=== PATIENT | female | born 1965 | race Caucasian/White ===

== ENCOUNTER 2021-10-07 07:57 | Outpatient (CLI) | payer OTHER, SELFPAY ==
[2021-10-07 08:25] LABS: Basophils Percent Auto 0.6 % (0.2-1.2); Eosinophils Absolute Auto 0.1 K/mm3 (0-0.3); Eosinophils Percent Auto 2.7 % (0-4.4); Hemoglobin 10.6 g/dL (12.0-15.0); Immature Granulocyte Absolute 0.04 K/mm3 (0.00-0.031); Immature Granulocyte Percent A 0.8 % (0-0.5); Lymphocytes Absolute Auto 2.11 K/mm3 (0.9-3.2); Lymphocytes Percent Auto 43.1 % (18.3-44.2); Mean Corpuscular HGB Conc 31.2 g/dl (32-36); Mean Corpuscular Hemoglobin 28.8 pg (26-34); Mean Corpuscular Volume 92.4 fl (80-100); Monocytes Absolute Auto 0.4 K/mm3 (0.1-0.6); Monocytes Percent Auto 8.2 % (2.6-8.5); Neutrophils Absolute Auto 2.2 K/mm3 (1.3-6.7); Neutrophils Percent Auto 44.6 % (45.5-73.1); Platelet Count Result 288 k/mm3 (150-375); Red Blood Count 3.68 M/mm3 (4.2-5.4); Red Cell Distribution Width 13.2 % (11.5-14.5); White Blood Count 4.9 K/mm3 (4.5-10.0)
[2021-10-07 08:32] LABS: Alanine Aminotransferase 20 U/L (6-35); Albumin Level 4.4 g/dL (3.5-5.1); Alkaline Phosphatase 66 U/L (38-126); Anion Gap 6 mmol/L (8-16); Aspartate Amino Transferase 24 U/L (14-36); Bilirubin,Total 0.3 mg/dL (0.2-1.3); Blood Urea Nitrogen 19 mg/dL (7-17); Calcium 9.2 mg/dL (8.4-10.2); Carbon Dioxide 27 mmol/L (22-30); Chloride 105 mmol/L (98-107); Cholesterol 203 mg/dL (0-200); Estimated Glomerular Filt Rate > 60; Glucose 97 mg/dL (65-110); HDL Direct 59 mg/dL; Potassium 3.8 mmol/L (3.4-5.0); Sodium 138 mmol/L (137-145); Triglycerides 66 mg/dL (<150)
[2021-10-07 08:42] LABS: LDL Cholesterol Direct 93 mg/dL
[2021-10-07 08:59] LABS: Hemoglobin A1C 5.6 % (<5.7)
[2021-10-09 21:21] LABS: Hepatitis C RNA, Quant PCR <15 IU/mL
== END 2021-10-07 07:58 | disposition home or self-care (01) ==
PROVIDERS: PCP Family Medicine Sports Medicine; Visit Provider Family Medicine Sports Medicine
DX: Z11.59 Encounter for screening for other viral diseases (principal); Z12.31 Encounter for screening mammogram for malignant neoplasm of breast; I70.0 Atherosclerosis of aorta; E78.2 Mixed hyperlipidemia; Z78.0 Asymptomatic menopausal state; Z80.0 Family history of malignant neoplasm of digestive organs; Z13.21 Encounter for screening for nutritional disorder
CPT/HCPCS: 36415; 80053; 80061; 82306; 83036; 84443; 85025; 87522

== ENCOUNTER 2021-11-07 10:06 | Outpatient (CLI) | payer OTHER, SELFPAY ==
[2021-11-07 10:42] LABS: Basophils Absolute Auto 0.1 K/mm3 (0.0-0.1); Eosinophils Absolute Auto 0.1 K/mm3 (0-0.3); Eosinophils Percent Auto 1.7 % (0-4.4); Hemoglobin 10.8 g/dL (12.0-15.0); Immature Granulocyte Absolute 0.03 K/mm3 (0.00-0.031); Immature Granulocyte Percent A 0.6 % (0-0.5); Lymphocytes Absolute Auto 2.26 K/mm3 (0.9-3.2); Lymphocytes Percent Auto 43.3 % (18.3-44.2); Mean Corpuscular HGB Conc 30.9 g/dl (32-36); Mean Corpuscular Hemoglobin 27.8 pg (26-34); Mean Platelet Volume 10.4 fl (7.4-10.4); Monocytes Absolute Auto 0.4 K/mm3 (0.1-0.6); Monocytes Percent Auto 7.1 % (2.6-8.5); Neutrophils Absolute Auto 2.4 K/mm3 (1.3-6.7); Neutrophils Percent Auto 46.3 % (45.5-73.1); Platelet Count Result 294 k/mm3 (150-375); Red Blood Count 3.89 M/mm3 (4.2-5.4); Red Cell Distribution Width 13.7 % (11.5-14.5); White Blood Count 5.2 K/mm3 (4.5-10.0)
[2021-11-07 11:06] LABS: CRP < 0.5 mg/dL (<1.0)
[2021-11-07 11:09] LABS: Iron 64 ug/dL (37-170)
[2021-11-07 11:27] LABS: Free T4 Free Thyroxine 0.89 ng/mL (0.78-2.19)
[2021-11-07 11:45] LABS: Ferritin 7.95 ng/mL (11.1-264)
[2021-11-07 12:19] LABS: Folic Acid > 20.0 ng/mL (2.76->20)
[2021-11-10 12:28] LABS: DHEA-Sulfate 79 mcg/dL (8-188)
[2021-11-10 14:44] LABS: T3 Reverse 10 ng/dL (8-25)
[2021-11-11 02:43] LABS: Insulin Level Total 8.3 uIU/mL (<=19.6); Thyroglobulin 6.1 ng/mL (2.8-40.9); Thyroglobulin Antibodies <1 IU/mL (<=1); Thyroid Peroxidase Antibodies <1 IU/mL (<9)
[2021-11-12 23:06] LABS: Estradiol, Ultrasensitive 14 pg/mL
[2021-11-13 05:44] LABS: Homocysteine 8.6 umol/L (<10.4)
[2021-11-14 20:50] LABS: FSH 64.6 mIU/mL (***); LH 23.4 mIU/mL (***); Progesterone <0.2 ng/mL (***)
[2021-11-15 11:42] LABS: Testosterone Free 3.2 pg/mL (0.1-6.4); Testosterone Total 30 ng/dL (2-45)
== END 2021-11-07 10:07 | disposition home or self-care (01) ==
LOC: ANHLAB 10:09
PROVIDERS: PCP Family Medicine Sports Medicine
DX: M25.50 Pain in unspecified joint (principal); D64.9 Anemia, unspecified; R53.83 Other fatigue; N95.9 Unspecified menopausal and perimenopausal disorder; L74.9 Eccrine sweat disorder, unspecified; E66.9 Obesity, unspecified
CPT/HCPCS: 36415; 82627; 82670; 82728; 82746; 83001; 83002; 83090; 83525; 83540; 84144; 84402; 84403; 84432; 84439; 84443; 84481; 84482; 85025; 86140; 86376; 86628; 86800

== ENCOUNTER 2022-01-16 10:32 | Outpatient (CLI) | payer OTHER, SELFPAY ==
[2022-01-16 11:54] LABS: Basophils Absolute Auto 0.1 K/mm3 (0.0-0.1); Basophils Percent Auto 0.9 % (0.2-1.2); Eosinophils Absolute Auto 0.1 K/mm3 (0-0.3); Eosinophils Percent Auto 1.6 % (0-4.4); Hemoglobin 12.1 g/dL (12.0-15.0); Immature Granulocyte Absolute 0.03 K/mm3 (0.00-0.031); Immature Granulocyte Percent A 0.5 % (0-0.5); Lymphocytes Absolute Auto 2.13 K/mm3 (0.9-3.2); Lymphocytes Percent Auto 38.5 % (18.3-44.2); Mean Corpuscular HGB Conc 31.8 g/dl (32-36); Mean Corpuscular Hemoglobin 27.6 pg (26-34); Mean Corpuscular Volume 86.8 fl (80-100); Mean Platelet Volume 11.1 fl (7.4-10.4); Monocytes Absolute Auto 0.4 K/mm3 (0.1-0.6); Monocytes Percent Auto 6.3 % (2.6-8.5); Neutrophils Absolute Auto 2.9 K/mm3 (1.3-6.7); Neutrophils Percent Auto 52.2 % (45.5-73.1); Platelet Count Result 263 k/mm3 (150-375); Red Blood Count 4.38 M/mm3 (4.2-5.4); Red Cell Distribution Width 16.4 % (11.5-14.5); White Blood Count 5.5 K/mm3 (4.5-10.0)
[2022-01-16 12:40] LABS: Iron 63 ug/dL (37-170)
[2022-01-16 12:50] LABS: Percent Iron Saturation 15 % (20-50)
== END 2022-01-16 10:33 | disposition home or self-care (01) ==
LOC: ANHLAB 10:37
PROVIDERS: PCP Family Medicine Sports Medicine; Visit Provider Family Medicine Sports Medicine
DX: Z00.00 Encounter for general adult medical examination without abnormal findings (principal); D64.9 Anemia, unspecified; R31.21 Asymptomatic microscopic hematuria; Z11.59 Encounter for screening for other viral diseases; Z13.29 Encounter for screening for other suspected endocrine disorder; I70.0 Atherosclerosis of aorta; K76.0 Fatty (change of) liver, not elsewhere classified; E78.2 Mixed hyperlipidemia; Z78.0 Asymptomatic menopausal state
CPT/HCPCS: 36415; 82607; 83540; 83550; 85025

== ENCOUNTER 2022-09-04 15:07 | Outpatient (CLI) | payer OTHER, SELFPAY ==
--- NOTE | ~2022-09-04 | MM_ITS ---
EXAMINATION: MM screening esha BI w irene HISTORY: Screening mammogram TECHNIQUE: Craniocaudal and mediolateral oblique 3-D tomosynthesis images were obtained and synthetic 2-D images were generated. CAD analysis was submitted and interpreted. COMPARISON: No prior mammogram is available for comparison at this institution. BREAST PARENCHYMAL COMPOSITION: The breasts are almost entirely fatty. FINDINGS: No suspicious mass, calcification, or architectural distortion are identified in either erica ast to suggest malignancy. IMPRESSION: 1. No mammographic evidence of malignancy. 2. Recommend routine screening mammography in one year. BI-RADS Category 1: Negative Reviewed, dictated and finalized at location A.
== END 2022-09-04 15:08 | disposition home or self-care (01) ==
LOC: ANHIMG 15:10
PROVIDERS: PCP Family Medicine Sports Medicine; Visit Provider Family Medicine Sports Medicine
DX: Z12.31 Encounter for screening mammogram for malignant neoplasm of breast (principal)
CPT/HCPCS: 77063; 77067

== ENCOUNTER 2022-12-22 12:58 | Outpatient (CLI) | payer OTHER, SELFPAY ==
--- NOTE | 2022-12-22 | ECHO_ITS ---
Patient Info Name: Karo Gregory Age: 56 years : 1965 Gender: Female Ht: 70 in Wt: 260 lbs BSA: 2.46 m2 HR: 61 bpm BP: 128 / 90 mmHg Heart Rhythm: Sinus Rhythm Technical Quality: Fair Exam Date: 12/22/2022 1:53 PM Exam Location: [facility] Patient Status: Outpatient Admit Date: 12/22/2022 Staff Ordering Physician: FreidaBrittney DO Dipper Operator: Luiza Sanchez RDCS Attending Provider: Brittney Pierre DO Referring Physician: Robby NOWAK; Exam Type: CA echo doppler color flow Study Info Indications R01.1 - Cardiac murmur, unspecified Complete two-dimensional, color flow and Doppler transthoracic echocardiogram is performed. Summary 1. Complete two-dimensional, color flow and Doppler transthoracic echocardiogram is performed. 2. Left ventricular chamber dimension is normal. 3. Left ventricular systolic function is normal, estimated at 60-65%. 4. The left ventricular diastolic function is grade II diastolic dysfunction. 5. E/e' 7 is not elevated. 6. Left atrial chamber dimension is mildly enlarged. 7. There is trace mitral valve regurgitation. 8. No pulmonary hypertension, estimated pulmonary arterial systolic pressure is 22 mmHg. Left Ventricle E/e' 7 is not elevated. Left ventricular chamber dimension is normal. Left ventricular systolic function is normal, estimated at 60-65%. The left ventricular diastolic function is grade II diastolic dysfunction. Right Ventricle Right ventricular systolic function is normal and with normal TAPSE 2.1 cm. Right ventricular chamber dimension is normal. Left Atria Left atrial chamber dimension is mildly enlarged. Right Atria Right atrial chamber dimension is normal. Aortic Valve The aortic valve is trileaflet. There is no aortic valve stenosis. There is no aortic valve regurgitation. Pulmonic Valve There is no pulmonic regurgitation. Mitral Valve There is no mitral valve stenosis. There is trace mitral valve regurgitation. Tricuspid Valve There is no tricuspid valve regurgitation. No pulmonary hypertension, estimated pulmonary arterial systolic pressure is 22 mmHg. Pericardium/Pleural There is no pericardial effusion. Inferior Vena Cava Normal inferior vena cava with >50% collapse upon inspiration consistent with normal right atrial pressure, 5 mmHg. Aorta The aortic root size at the sinus of Valsalva is normal. Left Ventricular Outflow Tract Name Value Normal LVOT 2D LVOT Diameter 2.0 cm LVOT Doppler LVOT Peak Gradient 8 mmHg LVOT Mean Gradient 3 mmHg LVOT VTI 26 cm LVOT VTI/AV VTI Ratio 0.7 LVOT Stroke Volume 79 ml LVOT CO 5.1 l/min LVOT CI 2.1 l/min/m2 Pulmonic Valve Name Value Normal RVOT Doppler RVOT Peak Gradient 2 mmHg
== END 2022-12-22 12:59 | disposition home or self-care (01) ==
LOC: ANHCARD 12:59
PROVIDERS: PCP Family Medicine Sports Medicine; Visit Provider Family Medicine Sports Medicine
DX: R01.1 Cardiac murmur, unspecified (principal); Z86.16 Personal history of COVID-19
CPT/HCPCS: 93306

== ENCOUNTER 2023-07-23 14:30 | Outpatient (RCR) | payer OTHER, SELFPAY ==
--- NOTE | 2023-06-18 10:08 | OPREHPOC ---
Outpatient Therapy Plan of Care This is a Multidisciplinary Plan of Care that may contain components documented by all disciplines (PT, OT, and ST.) PT Problem 1 PT Problem #1 Knowledge Deficit PT Goal 1 Goal *indep with HEP PT Problem 2 PT Problem #2 Pain PT Goal 1 Goal 1* decrease pain rating at worst to 4/10 2* self assessment LEFS rating of 38% limitation in activity 3* pt report able to get in/out car without pain in knee PT Problem 3 PT Problem #3 Impaired Flexibility PT Goal 1 Goal increase R knee ROM to improve gait and transfer skills: sitting active R knee: 1* extension 0' 2* flexion 130' PT Problem 4 PT Problem #4 Impaired Strength PT Goal 1 Goal increase strength of R LE to improve gait and activities 1* pt stand with equal weight bearing 2* pt stand with full knee extension of 0' 3* pt ambulate without limp on R LE, 150' 4* pt up/down 8 steps with alternating step pattern, without hand railing
--- NOTE | 2023-06-18 10:08 | PTOPEVAL1 ---
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; computer and phone work; usually active and outside alot; due to knee pain- issues on stairs, getting leg in /out car; problems with walking; Reported Pain Level Pain Score Self Report Additional Pain Score Comments pain range in the past week 1-9/10; sharp pain lateral patella; ache in knee increase pain: stairs, in/out car, initial sit to stand--first few steps really painful decrease pain: sit, rest, compression with niraj wraps; take aleve swelling over knee; used ice initially, not used lately with sleeping, pain awakens her 2x/night Assessment PT Clinical Summary Karo has the diagnosis of R knee cyst. She reports onset in Apr, after having COVID. She reports issues with stairs, getting leg in/out car walking and not able to move her knee. 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 Her medical history includes back pain, with chiropractor care and multiple injuries to R knee. With the evaluation, she has decreased ROM of R knee flexion and extension with pain increase; fluid pocket over popliteal crease, with tenderness and spasms over distal hamstring and lateral gastrocs; she is not able to tolerate full WB on R LE. Skilled PT services are indicated for modalities to decrease pain and spasms, therapeutic exercises to increase flexibility of R knee and ankle, with education for HEP. Plan of Care Interventions Electrical Stimulation,Gait Training,Hot Pack/Cold Pack,Intermittent Compression,Manual Therapy, Neuro Re-education,Patient Education, Therapeutic Activities,Therapeutic Exercise, Ultrasound,Ot
--- NOTE | 2023-07-23 15:19 | PTOPDC ---
Assessment and note entered by Danae Plata, PT Discharge Information Assessment Status Discharge Diagnosis R knee synovial cyst Onset Apr 2023 Subjective Information knee is better, it is stronger; having some low back spasms and pain; have good exercises that have been doing at home; Reported Pain Level Pain Score Self Report Additional Pain Score Comments pain range in the past week 0-4/10; with getting in/out car- getting in is fine, but after sitting in car 30 minutes, knee hurts and have to lift leg out of car; increase pain with twisting knee, it pops into place and is OK then; discussed use of heat over mid hamstrings, calf for muscle relaxation, but not over knee/ swelling also use of foam roll or massage gun to decrease spasms Assessment PT Clinical Summary Karo has received 10 PT sessions. She has improved since the initial evaluation: pain from 0-9/10 to 0-4/10; self assessment LE functional scale from 73% to 21% limitatin in activity level; sitting active knee extension from (-20') to (-5'), with increased strength of R hip and knee; is able to perform steps with alternating step pattern. Active knee flexion is the same at 120'; continues to have pain with getting out of the car after sitting and driving 30 minutes. Education completed for HEP and pain management. The goals were partially met. Discharge PT services. She is to continue with her home exercise program. Plan of Care PT Services Indicated No
== END 2023-07-24 08:54 | disposition home or self-care (01) ==
LOC: ANHPT 14:30
PROVIDERS: PCP Family Medicine Sports Medicine; Visit Provider Family Medicine Sports Medicine
DX: M71.21 Synovial cyst of popliteal space [Baker], right knee (principal)
CPT/HCPCS: 97016; 97035; 97110; 97112; 97140; 97161

== ENCOUNTER 2023-08-04 11:16 | Outpatient (CLI) | payer OTHER, SELFPAY ==
--- NOTE | ~2023-08-04 | XR_ITS ---
XR knee RT min 4V DATE: 08/04/2023 11:37 INDICATION: Pain TECHNIQUE: Standing AP, PA and lateral views. [facility] view. COMPARISON: None FINDINGS: There is moderate loss of height of the medial compartment joint space. There is slight per iarticular spurring at the medial and lateral compartments, mild periarticular spurring of the patell a. No fracture or dislocation or joint effusion. No periosteal reaction or bone destruction. No radiopaq ue intra-articular loose body or chondrocalcinosis. IMPRESSION: Mild to moderate tricompartment osteoarthritis Reviewed, dictated and finalized at location B.
== END 2023-08-04 11:17 | disposition home or self-care (01) ==
LOC: ANHIMG 11:17
PROVIDERS: PCP Family Medicine Sports Medicine; Visit Provider Orthopaedic Surgery
DX: M17.11 Unilateral primary osteoarthritis, right knee (principal)
CPT/HCPCS: 73564

== ENCOUNTER 2023-09-03 08:39 | Outpatient (CLI) | payer OTHER, SELFPAY ==
--- NOTE | ~2023-09-03 | MR_ITS ---
MRI of the right knee Clinical history: Medial meniscus tear Technique: Coronal proton density and proton density-weighted images, sagittal proton-density and T2 fat-sat images, and axial proton-density fat-saturated images were acquired. Findings: Anterior and posterior cruciate ligaments are intact. Medial collateral ligament and the la teral collateral ligament complex are intact. Popliteus tendon is intact. There is probable tear of the posterior horn of the medial meniscus which is somewhat diminutive. No definite lateral meniscal tear seen. There is high-grade chondromalacia along the medial patellar facet. Femoral trochlear cartilage is in tact. There is high-grade chondromalacia of the medial femoral condyle and medial tibial plateau towa rds the joint line. There is focal moderate chondral thinning along the inner margin of the lateral t ibial plateau. Extensor mechanism is intact. Small to moderate joint effusion present. Moderate to large Shah's cys t present. Impression: Probable tear of the posterior horn medial meniscus which is somewhat diminutive. Degenerative change, as detailed above. Moderate to large Shah's cyst with small to moderate joint effusion. Reviewed, dictated and finalized at location M. Impression: Probable tear of the posterior horn medial meniscus which is somewhat diminutiv e. Degenerative change, as detailed above. Moderate to large Shah's cyst with small to moderate joint effusion.
== END 2023-09-03 08:40 | disposition home or self-care (01) ==
PROVIDERS: PCP Family Medicine Sports Medicine; Visit Provider Orthopaedic Surgery
DX: S83.241A Other tear of medial meniscus, current injury, right knee, initial encounter (principal); X58.XXXA Exposure to other specified factors, initial encounter; M25.461 Effusion, right knee
CPT/HCPCS: 73721

== ENCOUNTER 2023-09-22 00:19 | Day surgery (SDC) | payer OTHER, SELFPAY ==
[2023-09-15 12:48] VITALS: BMI 39.8
--- NOTE | 2023-09-15 13:04 | PC.NURSE ---
Report to the Outpatient Waiting Room, entrance under the green pavilion located off [facility], at time __11:30AM on date __09/22/23 . Planned Procedure Time: ___1:30PM . Time changes happen often and if your time is changed the preop area will call you the afternoon before. - You and your visitor will be asked to self-screen and do not enter if you have any COVID symptoms. - A mask is optional within the hospital at this time. NO FOOD AFTER MIDNIGHT ON NIGHT BEFORE SURGERY. Patients may have clear liquids (water, carbonated beverages, clear teas, apple juice) until 3 hours prior to surgery with a maximum of 20 ounces. Take the following medications with a SIP of water the morning of surgery: ___NONE DO NOT STOP ANY OF YOUR OTHER PRESCRIPTION MEDICATIONS PRIOR TO SURGERY ?EXCEPT THE FOLLOWING Medications to discontinue per physician __HOLD MELOXICAM 7 DAYS PRE-OP PER DR MONAE Date to take last dose 09/14/23 Please no make-up, nail ethiopian, hairspray, perfume, deodorant, or body powder the day of surgery. No jewelry (including any body piercings) or valuables the day of surgery, leave them at home. Please take a shower or bath the night before, or the morning of, surgery with an antibacterial soap. Wear comfortable, loose fitting clothing. Children are encouraged to wear pajamas. - Jewelry must be removed prior to entering the operating room. Rings and piercings that are not removed may be cut off. - The hospital will not accept responsibility for valuables. - Please leave all valuables, including medications, at home the day of surgery. If you are going home after surgery, a licensed water tanker driver must drive you home. - NO public transportation without another adult if you receive anesthesia. - We recommend that an adult stay with you for 24 hours following discharge. - We also recommend that you do not drive, make important decision, drink alcoholic beverages, or take any drugs that were not prescribed by your health care provider for at least 24 hours after your discharge time. For Pediatric surgeries, we recommend two adults accompany the child home. Follow any additional instructions given to you from your surgeon. If you or anyone in your household have experienced Covid symptoms in the past week, please notify your surgeon or the nurse liaison at the phone number below for possible testing. Telephone instructions given to ____PATIENT and asked if any additional questions and then verbalized understanding. Patient advised to call surgeon office or pre surgery nurse liaison [phone] if any additional questions.
[2023-09-22] VITALS (8 sets, daily range): BP systolic 127–145; BP diastolic 72–98; PULSE 62–87; RESP 12–16; TEMP 36.7–36.8; O2SAT 94–99
[2023-09-22] MEDS: ACETAMINOPHEN 500 MG TABLET 1000 MG PO (12:45)
[2023-09-22] MEDS: KETOROLAC 15 MG/ML VIAL (*BKC) IV PUSH (12:45)
--- NOTE | 2023-09-22 12:51 | WPDHPUPDATE1 ---
History and Physical Update Update Date/Time: 09/22/23 12:51 History and Physical has been reviewed, including an updated exam of the patient. There are NO changes in the patient's condition. Risks, benefits, and alternatives have been discussed and questions answered. Patient agrees to proceed with procedure.
--- NOTE | 2023-09-22 13:06 | P.PNAN_ITS ---
Anes - Initial Pre Proc Eval Procedure: Operation Date: 09/22/23 13:15 Proposed Procedures p Right Knee Arthroscopy, Partial Medial Meniscectomy - Kyree Robbins MD Date/Time: 09/22/23 13:06 Surgeon: Kyree Robbins MD Pre Op Diagnosis: right knee medial meniscus tear Patient Data Age: 57 Gender: F Height: 1.78 m Weight: 126 kg Allergies Allergy/AdvReac Type Severity Reaction Status Date / Time No Known Allergies Allergy Verified 09/22/23 13:09 Home Medications Medication Instructions Recorded Confirmed Type meloxicam 15 mg tablet 15 mg PO DAILY 09/15/23 09/15/23 History Patient hx anesthesia problems: none Family hx anesthesia problems: none Results Review: All pre-operative results and documents have been reviewed as part of the pre- operative evaluation. [facility] Surgical History Surgical History History of endometrial ablation History of tubal ligation History of wisdom tooth extraction Family History Family History Mother Type 2 diabetes mellitus Hypertension Uterine cancer Father Hypertension CAD (coronary artery disease) Social History Social History Smoking packs per day: 0.5 Smoking cigarettes per day: 10.0 Years smoked: 20 Smoking pack-years: 10.00 Smoking status: Former smoker Tobacco type: cigarettes Smoking end date: 04/03/12 Alcohol intake: current Do You Feel Safe in your Home?: Yes Lack of Transportation: No Lack of Food: Never True Current Housing: I Have Housing Concerned About Future Housing: No Difficulty Paying Gas/Electric Bills: No Difficulty Paying for Meds: No Currently Unemployed: No Education: Bachelor's Degree Difficulty w/ Childcare or Family Care: No Living arrangements: with family Additional living arrangements comments: [facility] Spiritual care concerns: No Anes - Eval Final PreProcedure Day of Procedure 09/22/23 13:06 Patient weight: morbidly obese Heart: regular rate and rhythm Lungs: clear to auscultation Airway: Mallampati scale class III Neurological: alert and oriented Last oral intake: >/= 8 hours ASA classification: III Emergent: no Anesthetic plan: proceed Anesthesia type and monitoring: general LMA and standard monitoring Results Review: All pre-operative results and documents have been reviewed as part of the pre- operative evaluation. Informed Consent: The patient's anesthetic plan and its attendant risks and benefits were discussed with the patient/family/POA. Questions were solicited and answers provided to the satisfaction of the patient/family/POA.
[2023-09-22] MEDS: ceFAZolin 3 GM/D5W 100 ML 100 ML IVPB (13:15)
[2023-09-22] MEDS: BUPIVACAINE/EPINEPHRINE 0.5% 50 ML VIAL 20 ML INFILTRATE (13:48)
--- NOTE | 2023-09-22 14:23 | W.PM.PROC2 ---
Procedure Note - Detailed Date of Procedure 09/22/23 Pre-op Diagnosis right knee medial meniscus tear Post-op Diagnosis Other (1. Right knee medial and lateral meniscus tears 2. Degenerative arthritis right knee) Procedure Performed Arthroscopic partial medial and lateral meniscectomies, with femoral and patellar chondroplasty, right knee. Surgeon Kyree Robbins MD Anesthesia General Findings Extensive chondromalacia on the medial femur. Grade 4. Large area with a significant flap at the weight-bearing portion. This was debrided. Moderate posterior horn meniscus tear with unstable flap treated with debridement. Anterior and lateral aspect of the lateral meniscus with mild tearing. Grade 2 chondromalacia in the weight-bearing portion of the femoral condyle laterally. Patella grade 3/4. Area of significant defect treated with gentle debridement and radiofrequency probe was used to route stabilize loose flaps of cartilage and assure a stable rim. Description of Procedure The patient was identified and the surgical site confirmed and signed in the preoperative holding area. Antibiotics were started per protocol, and the patient was brought to the operative room and transferred to the OR table. A general anesthetic was administered. Supine position with the operative lower extremity position in the leg bustamante after placement of a well padded tourniquet. The leg support was lowered and the contralateral limb was supported with a soft bolster. The knee was prepped and draped in the usual sterile fashion. A time-out was performed. The portal sites were marked and infiltrated with 0.5% Marcaine 20 mL. The limb was exsanguinated and the tourniquet inflated to 300 mL Hg. Standard inferolateral and inferomedial portals were established. Inflow was obtained with the saline pump. The camera was introduced. Diagnostic inspection of the joint was accomplished. The menisci were debrided with the arthroscopic shaver and punches until stable. The radiofrequency probe was also used for further d?bridement. Chondroplasty was performed on the medial femoral condyle and lateral condyle, and also in the patella. The arthroscopic instruments were removed. The tourniquet released and wounds closed with subcutaneous 4-0 Monocryl absorbable suture. Steri strips and a sterile dressing were applied. A light elastic wrap was placed. The patient was extubated and brought to the recovery room in stable condition. Estimated Blood Loss 5 Drains No Complications No immediate complications Condition Stable Disposition PACU [facility] Billing Surgery - Charge Forward: Surgery Billing
[2023-09-22] MEDS: LACTATED RINGERS 1,000 ML 30 ML IV CONT ×2 (14:31)
[2023-09-22] MEDS: fentaNYL CITRATE INJ (*CRX) 100 MCG/2 ML VIAL 25 MCG IV PUSH ×4 (14:37→14:51)
[2023-09-22] MEDS: oxyCODONE HCL (*CRX) 5 MG TAB IR PO (15:22)
== END 2023-09-22 16:01 | disposition home or self-care (01) ==
PROVIDERS: PCP Family Medicine Sports Medicine; Visit Provider Orthopaedic Surgery
PROC: (CPT 29870; principal; 2023-09-22 13:15)
DX: M23.321 Other meniscus derangements, posterior horn of medial meniscus, right knee (principal); M23.361 Other meniscus derangements, other lateral meniscus, right knee; M22.41 Chondromalacia patellae, right knee; Z87.891 Personal history of nicotine dependence; E66.01 Morbid (severe) obesity due to excess calories; Z68.39 Body mass index [BMI] 39.0-39.9, adult
CPT/HCPCS: 29880; A9270; J0690; J1100; J1885; J2250; J2405; J2704; J3010; J7120

== ENCOUNTER 2023-11-11 11:00 | Outpatient (RCR) | payer OTHER, SELFPAY ==
--- NOTE | 2023-09-30 17:54 | PTOPEVAL1 ---
Assessment and note entered by Amy Zimmerman, PT Evaluation Information Assessment Status Evaluation Diagnosis R knee Therapy Conditions Edema, ROM deficits, pain, gait impairments Onset 09/22/2023 Subjective Information Pt reports pain to R knee which started last year ~7 or 8 months or more, gradually worsened and finally she underwent surgery last 09/21, and states that she felt significant relief from pain. Currently c/o difficulty in going down step of stairs, getting out of the car after prolonged sitting, getting up from lowered height toilet seats. States that she is still taking meloxicam 2x/day for pain relief. Reported Pain Level Pain Score 3: Self Report Assessment PT Clinical Summary Pt presents with R knee pain and swelling s/p arthroscopic partial medial meniscectomy on 2023. Demos significant edema, decreased joint mobility, pain and stiffness, decreased flexibility, impaired balance and gait impacting safety with performing independent functional mobility. Skilled PT necessary to improve condition and return to PLOF and improve QOL. Plan of Care Interventions Electrical Stimulation,Gait Training,Hot Pack/Cold Pack,Intermittent Compression,Manual Therapy, Neuro Re-education,Patient/Caregiver Education, Therapeutic Activities,Therapeutic Exercise PT Services Indicated Yes Treatment Frequency and 2-3x/wk x 12 visits Duration These treatments will address the objective and functional deficits as defined above. The patient will be advanced safely and appropriately in order for the patient to progress towards his/her prior level of function. Additional exercises will be introduced and as well as a comprehensive home exercise program upon discharge, if needed, ?to ensure carryover of functional gains achieved in the clinic. This treatment plan has been reviewed and agreement upon by the patient.
--- NOTE | 2023-11-11 11:56 | PTOPDC ---
Assessment and note entered by Danae Plata, PT Discharge Report Assessment Status Discharge Diagnosis R knee Onset 09/22/2023 Subjective Information doing much better; did alot of gardening and yard work over the weekend and knee did OK; wearing good shoes really helps her knee; on stairs can alternate feet without even thinking about it; have been released by dr. fields for discharge from therapy. Reported Pain Level Pain Score Self Report Additional Pain Score Comments pain range in the past week 0-6/10; one time, pain went up to 6/10 when working with the chickens outside and wearing crocs, but not since then; otherwise only up to 1/10; have very minimal swelling over knee; Assessment PT Clinical Summary Karo has received a total of 13 PT sessions. Compared to the initial evaluation: pain has decreased to 0-1/10; slight increase in knee pain with descending stairs; decreased edema over R knee, with 2/3 measurements 1 cm more and 1 the same as L knee; increase strength of R hip and knee; indep with HEP. active ROM of knee in sitting: (-8') to 130'; The goals were partially achieved. Discharge PT. She is to continue with her HEP and progress activity for fitness as tolerated. Plan of Care PT Services Indicated No
== END 2023-11-16 09:15 | disposition home or self-care (01) ==
LOC: ANHPT 11:00
PROVIDERS: PCP Family Medicine Sports Medicine; Visit Provider Orthopaedic Surgery
DX: Z48.89 Encounter for other specified surgical aftercare (principal)
CPT/HCPCS: 97014; 97016; 97110; 97116; 97140; 97161; 97530; G0283